=== PATIENT | female | born 2000 | race Hispanic/Latino ===

== ENCOUNTER 2022-02-11 09:14 | Outpatient (CLI) | payer OTHER | END 2022-02-11 09:15 | disposition home or self-care (01) | LOC: CSHLAB 09:14 | PROVIDERS: ATTEND Family Medicine | DX: Z20.822 Contact with and (suspected) exposure to COVID-19 (principal) | CPT/HCPCS: U0003; U0005 ==

== ENCOUNTER 2022-02-15 19:30 | Inpatient (IN) | payer OTHER ==
[2022-02-16 02:10] VITALS: BMI 26.6
[2022-02-16] MEDS ORDERED: Carboprost 250 MCG/ML AMP IM PRN (02:11)
[2022-02-16] MEDS ORDERED: Ondansetron PF 4 MG/2 ML Vial IVP PRN ×2 (02:11→13:27)
[2022-02-16] MEDS ORDERED: Methylergonovine 0.2 MG/ML VIAL IM PRN ×2 (02:11→20:13)
[2022-02-16] MEDS ORDERED: Ibuprofen 800 MG TAB PO PRN ×2 (02:11→20:13)
[2022-02-16] MEDS ORDERED: HYDROcodone/Acetaminophen 5/325 mg Tablet PO PRN (02:11)
[2022-02-16] MEDS ORDERED: Diphenoxylate HCl/Atropine Tablet PO PRN (02:11)
[2022-02-16] MEDS ORDERED: Promethazine HCl 25 MG/ML VIAL IM PRN ×2 (02:11→13:27)
[2022-02-16] MEDS ORDERED: NS w/ Oxytocin 30 units 500 ML IV SCH ×2 (02:11)
[2022-02-16] MEDS ORDERED: hydrALAZINE 20 MG/ML VIAL SLOW IVP PRN (02:11)
[2022-02-16] MEDS ORDERED: Acetaminophen 500 MG TAB PO PRN (02:11)
[2022-02-16] MEDS ORDERED: Lidocaine 1% (PF) 30 ML VIAL SC PRN (02:11)
[2022-02-16] MEDS ORDERED: Misoprostol 200 MCG TAB PR PRN (02:11)
[2022-02-16] MEDS ORDERED: Butorphanol Tartrate 1 MG/ML VIAL SLOW IVP PRN (02:11)
[2022-02-16 03:04] LABS: Hemoglobin 11.9 g/dL (12.0-15.5); Mean Corpuscular HGB CONC 35.6 g/dL (32.0-36.0); Mean Corpuscular Volume 92.5 fl (81.6-98.3); Mean Platelet Volume 9.6 fl (7.4-10.4); Platelet Count 324 10x3/uL (150-450); RBC Distribution Width 12.8 % (11.5-14.5); Red Blood Cell (RBC) Count 3.61 10x6/uL (3.90-5.03); White Blood Cell (WBC) Count 10.6 10x3/uL (3.5-10.5)
[2022-02-16] MEDS: Misoprostol 100 MCG TAB VAG SCH ×2 (03:17→07:29)
[2022-02-16 03:34] LABS: Syphilis Antibody Nonreactive (Nonreactive); Syphilis Antibody Index 0.05 S/CO (<1.00 Non-Reactive)
[2022-02-16 03:35] LABS: Hep B Surf Ag Non-Reactive S/CO (NonReactive)
[2022-02-16 03:36] LABS: HBSAg Index 0.01 S/CO (0-0.99)
[2022-02-16] MEDS: Lactated Ringer's 1,000 ML IV SCH (06:28)
[2022-02-16] MEDS ORDERED: Bupivacaine/Epinephrine 0.25% 30 ML VIAL ONE (08:00)
[2022-02-16] MEDS ORDERED: Fentanyl 2 mcg/Bup 0.1% Cadd 100 ML ONE ×2 (09:51→17:51)
[2022-02-16] MEDS ORDERED: ePHEDrine Sulfate 50 MG/10 ML VIAL SLOW IVP PRN (13:27)
[2022-02-16] MEDS ORDERED: Naloxone HCl 0.4 mg/ml Vial IVP PRN ×2 (13:27)
[2022-02-16] MEDS ORDERED: Moisturizing Cream (Eucerin) 113 GM JAR TOP PRN (13:27)
[2022-02-16] MEDS ORDERED: diphenhydrAMINE 50 MG/ML VIAL IVP PRN (13:27)
[2022-02-16] MEDS ORDERED: Acetaminophen 325 MG TAB PO PRN (13:27)
[2022-02-16] MEDS ORDERED: Lactated Ringer's 500 ML IV PRN (13:27)
[2022-02-16] MEDS ORDERED: Communication Order-Pharmacy FS SCH (13:30)
[2022-02-16] MEDS ORDERED: Fentanyl 2 mcg/Bupivacaine 0.1% Cassette 100 ML EPIDURAL SCH (13:30)
[2022-02-16] MEDS ORDERED: Ondansetron PF 4 MG/2 ML Vial ONE (15:29)
[2022-02-16] MEDS ORDERED: Fentanyl 100 MCG/2 ML VIAL ONE (18:22)
[2022-02-16] MEDS ORDERED: Methylergonovine 0.2 MG/ML VIAL ONE (19:51)
[2022-02-16] MEDS ORDERED: Misoprostol 200 MCG TAB ONE (19:52)
[2022-02-17] MEDS ORDERED: Ondansetron PF 4 MG/2 ML Vial IVP PRN (00:43)
[2022-02-17] MEDS ORDERED: HYDROcodone/Acetaminophen 5/325 mg Tablet PO PRN (00:43)
[2022-02-17] MEDS ORDERED: Lanolin Ointment 7 GM TUBE TOP PRN (00:43)
[2022-02-17] MEDS ORDERED: Promethazine HCl 25 MG/ML VIAL IM PRN (00:43)
[2022-02-17] MEDS ORDERED: Boostrix 0.5 ML (Tdap) VIAL IM ONE (00:43)
[2022-02-17] MEDS ORDERED: Milk Of Magnesia 30 ML UDCUP PO PRN (00:43)
[2022-02-17] MEDS ORDERED: hydrALAZINE 20 MG/ML VIAL SLOW IVP PRN (00:43)
[2022-02-17] MEDS ORDERED: Benzocaine-Menthol 82.5 ML CAN TOP PRN (00:43)
[2022-02-17] MEDS ORDERED: diphenhydrAMINE 25 MG CAP PO PRN (00:43)
[2022-02-17] MEDS ORDERED: Bisacodyl 10 MG SUPP PR PRN (00:43)
[2022-02-17] MEDS: Misoprostol 100 MCG TAB VAG SCH (00:48)
[2022-02-17] MEDS: Docusate 100 MG CAP PO SCH ×3 (00:50→21:48)
[2022-02-17] MEDS: Lactated Ringer's 1,000 ML IV SCH (00:51)
[2022-02-17] MEDS: Ibuprofen 800 MG TAB PO SCH ×3 (06:18→21:48)
[2022-02-17] MEDS: Ferrous Sulfate 325 MG TAB PO SCH ×2 (07:44→17:59)
[2022-02-17] MEDS: Prenatal Vitamin 1 TAB PO SCH (08:45)
[2022-02-18] MEDS: Ibuprofen 800 MG TAB PO SCH (05:59)
[2022-02-18 08:00] VITALS: BP 105/57; TEMP 98.4
[2022-02-18] MEDS: Ferrous Sulfate 325 MG TAB PO SCH (08:50)
[2022-02-18] MEDS: Docusate 100 MG CAP PO SCH (08:50)
[2022-02-18] MEDS: Prenatal Vitamin 1 TAB PO SCH (08:50)
== END 2022-02-18 10:45 | disposition home or self-care (01) | DRG 807 ==
LOC: CSHLD 02-16 01:40 → CSHPP 02-16 22:05
PROVIDERS: ADMIT Family Medicine; ATTEND Family Medicine
PROC: 10E0XZZ Delivery of Products of Conception, External Approach (ICD-10-PCS; principal; 2022-02-16)
PROC: 3E0P7VZ Introduction of Hormone into Female Reproductive, Via Natural or Artificial Opening (ICD-10-PCS; 2022-02-16)
PROC: 10H07YZ Insertion of Other Device into Products of Conception, Via Natural or Artificial Opening (ICD-10-PCS; 2022-02-16)
PROC: 0HQ9XZZ Repair Perineum Skin, External Approach (ICD-10-PCS; 2022-02-16)
DX: O42.02 Full-term premature rupture of membranes, onset of labor within 24 hours of rupture (principal); Z37.0 Single live birth; Z3A.40 40 weeks gestation of pregnancy; O77.0 Labor and delivery complicated by meconium in amniotic fluid; O62.2 Other uterine inertia; O70.0 First degree perineal laceration during delivery
CPT/HCPCS: 36415; 51702; 85027; 86780; 86850; 86900; 86901; 87340; J0595; J2210; J2405; J2550; J2590; J7120

== ENCOUNTER 2023-01-31 21:45 | Emergency (ER) | payer MEDICAID, OTHER | END 2023-01-31 23:46 | disposition home or self-care (01) | LOC: CSHERS 21:45 | DX: O99.891 Other specified diseases and conditions complicating pregnancy (principal); R10.9 Unspecified abdominal pain; Z3A.18 18 weeks gestation of pregnancy | CPT/HCPCS: 76815 ==

== ENCOUNTER 2023-06-21 01:52 | Day surgery (SDC) | payer OTHER ==
[2023-06-21 02:25] VITALS: BMI 25.9
[2023-06-21] MEDS ORDERED: hydrALAZINE 20 MG/ML VIAL SLOW IVP PRN (03:30)
== END 2023-06-21 05:20 | disposition home or self-care (01) ==
LOC: CSHLD/OP 01:52
PROVIDERS: ATTEND Family Medicine
DX: O47.1 False labor at or after 37 completed weeks of gestation (principal); Z3A.38 38 weeks gestation of pregnancy
CPT/HCPCS: 99283

== ENCOUNTER 2023-06-22 12:57 | Inpatient (IN) | payer OTHER ==
[2023-06-22] MEDS ORDERED: Methylergonovine 0.2 MG/ML VIAL IM PRN (13:43)
[2023-06-22] MEDS ORDERED: HYDROcodone/Acetaminophen 5/325 mg Tablet PO PRN ×2 (13:43→18:54)
[2023-06-22] MEDS ORDERED: Diphenoxylate HCl/Atropine Tablet PO PRN (13:43)
[2023-06-22] MEDS ORDERED: fentaNYL 50 mcg/mL 1 mL Vial SLOW IVP PRN (13:43)
[2023-06-22] MEDS ORDERED: Ibuprofen 800 MG TAB PO PRN (13:43)
[2023-06-22] MEDS ORDERED: hydrALAZINE 20 MG/ML VIAL SLOW IVP PRN ×2 (13:43→18:54)
[2023-06-22] MEDS ORDERED: Acetaminophen 500 MG TAB PO PRN (13:43)
[2023-06-22] MEDS ORDERED: Misoprostol 200 MCG TAB PR PRN (13:43)
[2023-06-22] MEDS ORDERED: Tranexamic Acid 1,000 MG/10 ML VIAL IVP PRN (13:43)
[2023-06-22] MEDS ORDERED: Promethazine HCl 25 MG/ML VIAL IM PRN (13:43)
[2023-06-22] MEDS ORDERED: Carboprost 250 MCG/ML AMP IM PRN (13:43)
[2023-06-22] MEDS ORDERED: Lidocaine 1% (PF) 30 ML VIAL SC PRN (13:43)
[2023-06-22] MEDS ORDERED: Ondansetron PF 4 MG/2 ML Vial IVP PRN ×2 (13:43→18:54)
[2023-06-22] MEDS ORDERED: Oxytocin 30 units/NS 500 ML 500 ML IV SCH ×3 (13:45)
[2023-06-22 15:08] VITALS: BMI 25.9
[2023-06-22] MEDS: Lactated Ringer's 1,000 ML IV SCH ×2 (15:09→16:14)
[2023-06-22 15:14] LABS: Hematocrit 32.5 % (34.9-44.5); Mean Corpuscular HGB CONC 33.8 g/dL (32.0-36.0); Mean Corpuscular Hemoglobin 32.4 pg (27.0-33.0); Mean Corpuscular Volume 95.6 fl (81.6-98.3); Mean Platelet Volume 9.5 fl (7.4-10.4); Platelet Count 302 10x3/uL (150-450); RBC Distribution Width 12.7 % (11.5-14.5); White Blood Cell (WBC) Count 13.4 10x3/uL (3.5-10.5)
[2023-06-22] MEDS ORDERED: fentaNYL/Ropivacaine Epidural 100 ML ONE (15:27)
[2023-06-22 15:41] LABS: Syphilis Antibody Nonreactive (Nonreactive); Syphilis Antibody Index 0.07 S/CO (<1.00 Non-Reactive)
[2023-06-22 15:43] LABS: HBSAg Index 0.15 S/CO (0-0.99); Hep B Surf Ag - L&D Non-Reactive S/CO (NonReactive)
[2023-06-22] MEDS ORDERED: diphenhydrAMINE 25 MG CAP PO PRN (18:54)
[2023-06-22] MEDS ORDERED: Boostrix 0.5 ML (Tdap) VIAL (>/=7 yrs of age) IM ONE (18:54)
[2023-06-22] MEDS ORDERED: Milk Of Magnesia 30 ML UDCUP PO PRN (18:54)
[2023-06-22] MEDS ORDERED: Lanolin Ointment 7 GM TUBE TOP PRN (18:54)
[2023-06-22] MEDS ORDERED: Benzocaine-Menthol 82.5 ML CAN TOP PRN (18:54)
[2023-06-22] MEDS ORDERED: Bisacodyl 10 MG SUPP PR PRN (18:54)
[2023-06-22] MEDS: Ibuprofen 800 MG TAB PO SCH (22:00)
[2023-06-22] MEDS: Docusate 100 MG CAP PO SCH (22:01)
[2023-06-23] MEDS: Ibuprofen 800 MG TAB PO SCH ×3 (05:53→21:45)
[2023-06-23] MEDS: Docusate 100 MG CAP PO SCH ×2 (08:23→21:45)
[2023-06-23] MEDS: Prenatal Vitamin 1 TAB PO SCH (08:23)
[2023-06-23] MEDS: Ferrous Sulfate 325 MG TAB PO SCH ×2 (08:23→17:00)
[2023-06-24] MEDS: Ibuprofen 800 MG TAB PO SCH ×2 (06:14→14:03)
[2023-06-24 07:59] VITALS: BP 105/59; TEMP 98.5
[2023-06-24] MEDS: Prenatal Vitamin 1 TAB PO SCH (08:14)
[2023-06-24] MEDS: Ferrous Sulfate 325 MG TAB PO SCH ×2 (08:14→17:45)
[2023-06-24] MEDS: Docusate 100 MG CAP PO SCH (08:14)
== END 2023-06-24 20:20 | disposition home or self-care (01) | DRG 807 ==
LOC: CSHLD/OP 12:57 → CSHLD 18:20 → CSHPP 21:00
PROVIDERS: ADMIT Family Medicine; ATTEND Family Medicine
PROC: 10E0XZZ Delivery of Products of Conception, External Approach (ICD-10-PCS; principal; 2023-06-22)
PROC: 10907ZC Drainage of Amniotic Fluid, Therapeutic from Products of Conception, Via Natural or Artificial Opening (ICD-10-PCS; 2023-06-22)
DX: O80 Encounter for full-term uncomplicated delivery (principal); Z37.0 Single live birth; Z3A.38 38 weeks gestation of pregnancy
CPT/HCPCS: 85027; 86780; 86850; 86900; 86901; 87340; J2405; J2590